=== PATIENT | male | born 2000 | race African-American/Black ===

== ENCOUNTER 2021-12-11 21:25 | Emergency (ER) | payer OTHER ==
[~2021-12-11] VITALS: Ht 170.2 cm; Wt 91.0 kg
[2021-12-11] MEDS ORDERED: VISCOUS LIDOCAINE 2% 15 ML UDC PO STA (22:46)
[2021-12-11] MEDS ORDERED: MAGNESIUM/ALUMINUM HYDROXIDE/SIMETHICONE 30ML UDC PO STA (22:46)
[2021-12-11] MEDS ORDERED: ONDANSETRON 4MG ODT PO STA (22:46)
[2021-12-11 22:56] LABS: CHLORIDE 105 mEq/L (98-107)
[2021-12-11 22:57] LABS: BASOPHILS % 0.5 % (0.0-2.0); EOSINOPHILS % 0.2 % (0.0-5.0); HEMATOCRIT. 43.6 % (42.0-52.0); LYMPHOCYTES % 23.9 % (20.0-50.0); MEAN CORPUSCULAR HEMOGLOBIN 30.9 pg (28.0-32.0); MEAN CORPUSCULAR VOLUME 89.7 fL (80.0-94.0); MEAN PLATELET VOLUME 11.2 fl (7.4-10.4); MONOCYTES % 10.5 % (2.0-8.0); NEUTROPHILS % 64.9 % (40.0-76.0); PLATELET 180 x1000/uL (130-400); RED BLOOD CELL COUNT 4.87 mill/uL (4.7-6.1); RED CELL DISTRIBUTION WIDTH 12.6 % (11.6-14.6)
[2021-12-12 00:37] VITALS: BP 128/76
== END 2021-12-12 00:39 | disposition home or self-care (01) ==
LOC: ER 21:25
DX: R11.0 Nausea (principal); R19.7 Diarrhea, unspecified
CPT/HCPCS: 36415; 80053; 83690; 85025; 99284; Q0162